=== PATIENT | male | born 1970 | race Caucasian/White ===

== ENCOUNTER 2024-02-25 11:21 | Emergency (ER) | payer OTHER, SELFPAY ==
[2024-02-25 11:39] VITALS: BP 144/85; PULSE 90; RESP 19; TEMP 36.8; O2SAT 99; BMI 25.9
--- NOTE | 2024-02-25 12:02 | PD.EDUPEX ---
Upper Extremity Injury RME/HPI General Chief Complaint: Extremity Injury, Upper Stated Complaint: RIGHT PINKY SWELLING Time Seen by Provider: 02/25/24 11:43 Source: patient Arrival date/time: 02/25/24 11:21 This is a 53-year-old male who presents to the emergency department with complaints of possible splinter embedded in his fifth digit right hand. He reports he was out hiking when he accidentally touched a tree branch and has a splinter embedded has noticed redness and swelling to mid phalanx. Limitations: no limitations Related Data Previous Rx's ?Medication ?Instructions ?Recorded cephalexin 500 mg capsule 500 mg PO TID 5 days #15 caps 02/25/24 mupirocin 2 % topical ointment 1 applic topical BID 7 days #15 02/25/24 grams Allergies Allergy/AdvReac Type Severity Reaction Status Date / Time No Known Allergies Allergy Verified 02/25/24 11:23 Review of Systems Review of Systems Systems Reviewed: All systems reviewed, normal except as documented Narrative Review of Systems: Gen: No fever, no chills, no weight loss EYES: No discharge, no visual changes, no pain HEENT: No ear pain, no congestion, no sore throat PULM: No shortness of breath, no cough, no congestion CV: No chest pain, no dyspnea on exertion, no palpitations GI: No nausea, no vomiting, no diarrhea, no pain, no constipation : No frequency, no urgency,? no dysuria Musc/skel: No joint pain, no back pain Skin: Swelling and redness to fifth digit ED Exam General Limitations: Present no limitations General appearance: Present alert and in no apparent distress Head Head exam: Present atraumatic Eye Eye exam: Present normal appearance, PERRL and EOMI ENT ENT exam: Present normal exam, normal oropharynx and mucous membranes moist Neck Neck exam: Present normal inspection, full ROM and trachea midline Chest Chest inspection: Present normal inspection and symmetric chest wall rise Respiratory Respiratory exam: Present normal lung sounds bilaterally Cardiovascular Cardiovascular exam: Present regular rate, normal rhythm and normal heart sounds Abdominal Exam Abdominal exam: Present soft and normal bowel sounds Extremities Exam Extremities exam: Present full ROM Expanded Upper Extremity Exam Hand L/R front image: 1. other (+ Visible splinter mid fifth digit right hand. Mild erythema and swelling noted no abscess formation.) Back Exam Back exam: Present normal inspection and full ROM Neurological Exam Neurological exam: Present alert, oriented X3 and CN II-XII intact Psychiatric Psychiatric exam: Present normal affect and normal mood Skin Skin exam: Present warm, dry, intact and normal color Course Quality Measures none Vital Signs Vital signs: Vital Signs Temperature 98.2 F 02/25/24 11:39 Pulse Rate 90 02/25/24 11:39 Respiratory Rate 19 02/25/24 11:39 Blood Pressure 144/85 H 02/25/24 11:39 Pulse Oximetry (%) 99 02/25/24 11:39 Oxygen Delivery Method Room Air 02/25/24 11:39 Extremity Injury MDM Narrative MDM Narrative:: 53-year-old male presents with splinter to right pinky palmar aspect, erythema noted to cellulitis pattern. Splinter was removed patient tolerated well. Patient placed on cephalexin antibiotics, ointment as directed. Follow-up with his PCP Return to the emergency department this any worsening symptoms change in condition. Patient data External records reviewed:: [facility] previous records Clinical information provided by:: patient Social determinants that could affect healthcare access:: none Patient has the following chronic illnesses:: no How is presenting disease/condition affected by chronic disease/condition?: no chronic disease Evaluation data The following diagnostics were reviewed and interpreted by me:: other (specify) Lab and/or radiology exams considered but not ordered:: Considered radiology however splinters visible superficial no x-ray ordered Interpretation Summary: Not applicable Medications / Prescriptions Medications or Prescriptions considered but not ordered:: no Medication administrations:: No Consultations Consultation(s) initiated? (list below): No Diagnosis Upper Extremity Injury Differential Diagnosis: finger sprain and other (Finger cellulitis, splinter removal) Most likely diagnosis given after review of the tests above:: Finger cellulitis, splinter removal Admission Indicated Admission indicated?: not indicated Admission Request Was there a request for admission?: No Disposition Plan Disposition Plan: Discharge Discharge Attestation Discharge Attestation: The patient and all family members were given an opportunity to ask questions and understood the discharge instructions. Discharge instructions specifically effects, indications for sooner follow up or return to the emergency department, and the expected course of current diagnosis. Patient condition: Stable Discharge Plan Plan Patient Disposition: HOME (Self Care) Patient condition on transfer: Stable Prescriptions/Referrals Prescriptions/Med Rec: New cephalexin 500 mg capsule 500 mg PO TID 5 Days Qty: 15 0RF mupirocin 2 % ointment 1 applic topical BID 7 Days Qty: 15 0RF Problem List Clinical Impression: Cellulitis of finger, Splinter in skin Patient/Caregiver Discharge Instructions Discharge Activity: activity as tolerated Education Materials: ED Cellulitis Additional Instructions: Please keep area clean and dry apply antibiotic ointment twice a day as directed. Oral antibiotics as directed. Follow-up with your doctor as directed reTurn to the emergency department is any worsening symptoms change in condition. Enjoy your hiking!!! Print Language: Kiswahili Stand Alone Forms: Angelique Award Info., Patient Portal Info Letter PA/CHILD CARE CENTER ASSISTANT DIRECTOR Supervising Physician PA/CHILD CARE CENTER ASSISTANT DIRECTOR Supervising Physician: Dr. Connor
== END 2024-02-25 12:45 | disposition home or self-care (01) ==
LOC: SERX 12:37
PROVIDERS: Emergency Provider Emergency Medicine
DX: S60.456A Superficial foreign body of right little finger, initial encounter (principal); L03.011 Cellulitis of right finger; W45.8XXA Other foreign body or object entering through skin, initial encounter; Y93.01 Activity, walking, marching and hiking
CPT/HCPCS: 99281